=== PATIENT | male | born 1940 | race Caucasian/White ===

== ENCOUNTER → 2016-10-31 | Outpatient (CLI) | payer OTHER, BC ==
[~2016-10-31] VITALS: Ht 180.3 cm; Wt 97.5 kg
[~2016-10-31] MED LIST: ASPIR 8181 MG PO; CENTRUM SILVER1 EAC4 PO; CINNAMON500 MG PO; COQ-10100 MG PO; CRANBERRY PLUS1 EAC1 PO; FISH OIL 1,001000 M2 PO; FOLIC ACID1 MG PO; GINKGO BILOBA120 MG PO; GREEN TEA EXTR250 MG PO; HYTRIN 5 M5 MG/1 CAP PO; LISINOPRIL5 MG PO; PROSCAR 5MG TABL5 MG PO; SIMVASTATIN20 MG PO; TYLENOL325 MG PO; VITAMIN B-12500 MCG PO; VITAMIN C500 M1 PO; VITAMIN D2000 UNI1 PO; VITAMIN E400 UNIT PO; ZINC CHELATE50 MG PO
--- NOTE | ~2016-10-31 | CATHLAB ---
[facility] [employer] [place] [address] INVASIVE PROCEDURE REPORT Name: KIMMY BARON [id number] Admission: 10/31/16 Attend Phys: Benjamin Enamorado Discharge: Date of : 38 Date of Service: 10/31/162124 Report #: [id number] THIS REPORT FOR: //name// CC: Benjamin Grewal DATE OF SERVICE: 10/31/2016 CARDIAC CATHETERIZATION REPORT INDICATIONS: A 76-year-old male patient with exertional dyspnea and atypical chest pain with an abnormal noninvasive assessment consisting of reversible lateral wall defect on perfusion scanning. PROCEDURES: 1. Left heart catheterization. 2. Selective left and right coronary angiography. 3. Measurement of left ventricular end-diastolic pressures. 4. Supervision of conscious sedation. [employer]NA[employer]CE SUPERVISOR: Benjamin Arriola M.D. BRIEF DESCRIPTION OF PROCEDURE: After informed consent was obtained, the patient was brought to the cardiac catheterization laboratory in stable condition. The patient's right groin was prepped and draped in the usual sterile manner after which lidocaine was then instilled. Utilizing a modified Seldinger technique, the right femoral artery was then accessed. Under fluoroscopic visualization using selective coronary catheters, the right and left coronaries were opacified and visualized. The left ventriculogram was likewise imaged per standard protocol with EDP being measured. Subsequent to this, the sheath was removed, hemostasis achieved. The patient tolerated the procedure well. There were no complications. FINDINGS: 1. FLUOROSCOPY: There was mild calcific plaquing along the epicardial coronary arteries. No significant plaquing on the valvular intramyocardial structures of the heart. 2. HEMODYNAMICS: A. Pre-procedure aortic pressure 207/98. B. Left ventricular end-diastolic pressures: 25-30. C. Post-procedure aortic pressure 209/110 (after 2 sublingual nitroglycerins and 4 mg of Versed). 3. RHYTHM: The patient's rhythm was sinus throughout the entire procedure. [facility] [place] [address] INVASIVE PROCEDURE REPORT Name: KIMMY BARON Room #: REG [place]#: [id number] Admission: 10/31/16 Attend Phys: Benjamin Enamorado Discharge: Date of : 38 Date of Service: 10/31/162124 Report #: [id number] 4. ANGIOGRAPHY: This is a left coronary dominant system. A. Left main is of normal origin and caliber, bifurcates into left anterior descending and left circumflex and is free of high-grade disease. B. Left anterior descending is a moderate-caliber type 3 vessel which courses in the anterior interventricular sulcus, giving rise to first diagonal branches and is free of high-grade disease. The LAD gives rise to septal and diagonal branches as it courses towards the apex. It hooks the apex and terminates well above the apex in the posterior aspect of the heart. C. Left circumflex is a moderate-caliber vessel, gives rise to 2 early marginal branches, free of high-grade disease. It then continues posteriorly, giving rise to the posterior wall marginal branch, all of which are free of high-grade disease. D. Right coronary artery is a small nondominant vessel, which gives rise to an early RV marginal branch, free of significant stenosis. The RCA proper then terminates right past the acute margin of the heart and without any significant stenotic lesions. IMPRESSION: 1. Normal coronary arteries. 2. Abnormal hemodynamics with markedly elevated systolic hypertension. <ELECTRONICALLY SIGNED> By: Benjamin Arriola MD 11/01/16 1317 [id number] [id number] Benjamin Arriola MD /nt
[2016-10-31 11:13] VITALS: BP 160/90
[2016-10-31 11:18] LABS: HEMATOCRIT 41.1 % (42.0-52.0); HEMOGLOBIN 14.2 gm/dL (14.0-18.0); MCH 32.7 pg (26.0-34.0); MCHC 34.5 g/dL (28.0-37.0); MCV 94.8 fL (80.0-100.0); RBC 4.33 mil/uL (4.50-6.00); RDW 13.3 % (10.5-14.5); WBC 7.3 thou/uL (4.0-11.0)
[2016-10-31 11:26] LABS: CREATININE 1.2 mg/dL (0.7-1.3); POTASSIUM 4.4 mmol/L (3.5-5.1)
== END | disposition home or self-care (01) ==
LOC: CATH 07:06
PROVIDERS: Internal Medicine
DX: I25.10 Atherosclerotic heart disease of native coronary artery without angina pectoris (principal); I10 Essential (primary) hypertension

== ENCOUNTER 2016-12-06 05:27 | Inpatient (IN) | payer OTHER, BC ==
[2016-11-28 13:46] LABS: HEMATOCRIT 39.4 % (42.0-52.0); HEMOGLOBIN 13.2 gm/dL (14.0-18.0); MCH 31.8 pg (26.0-34.0); MCHC 33.5 g/dL (28.0-37.0); MCV 95.1 fL (80.0-100.0); RBC 4.14 mil/uL (4.50-6.00); RDW 12.3 % (10.5-14.5); WBC 7.8 thou/uL (4.0-11.0)
[2016-11-28 13:54] LABS: ALBUMIN 3.9 g/dL (3.4-5.0); CALCIUM 9.4 mg/dL (8.5-10.1); CREATININE 1.2 mg/dL (0.7-1.3); POTASSIUM 3.7 mmol/L (3.5-5.1)
[2016-11-28 13:57] LABS: PROTIME 10.5 Seconds (9.3-11.4)
[2016-11-28 14:37] LABS: URINE BILIRUBIN NEGATIVE (Negative); URINE BLOOD NEGATIVE (Negative); URINE COLOR YELLOW; URINE GLUCOSE-RANDOM* NEGATIVE (Negative); URINE KETONES NEGATIVE (Negative); URINE LEUKOCYTES-REFLEX TRACE (Negative); URINE PROTEIN (DIPSTICK) TRACE (Negative); URINE SPECIFIC GRAVITY 1.025 (1.003-1.035)
[2016-12-06] VITALS (8 sets, daily range): BP systolic 120–176; BP diastolic 77–98
[~2016-12-06] VITALS: Ht 180.3 cm; Wt 97.5 kg
--- NOTE | ~2016-12-06 | O ---
[facility] [address] [place] [address] OPERATIVE REPORT Name: BARONMARCOS Room #: 535-P [facility] IN M.R.#: [id number] Admission: 12/06/16 Attend Phys: Marcos Hunt MD Discharge: Date of : 38 Report #: [id number] THIS REPORT FOR: //name// CC: Marcos Grewal DATE OF SERVICE: 12/06/2016 DATE OF SERVICE: 12/06/2016. 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 PROCEDURE: Left total knee arthroplasty. SURGEON: Marcos Hunt MD INDICATIONS: This 76-year-old gentleman remains active and independent. 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 We discussed treatment options for some time and he feels conservative measures have been ineffective. He and his therefore have elected to go ahead with left total knee arthroplasty. We discussed potential risks and benefits at some length preoperatively, they understand and wish to proceed. DESCRIPTION OF PROCEDURE: The patient was taken to the operating room where he was placed under general anesthesia. The left knee and leg were meticulously prepped and draped. A thigh tourniquet was applied and inflated to 300 mmHg. An anterior longitudinal skin incision was made and carried through the medial retinaculum. The patella was reflected laterally where the marked degenerative change in all 3 compartments was noted. The GodTube knee system was utilized. Intramedullary guides were used on both the femur and the tibia. The femur was cut in 3 degrees of valgus. The tibia was cut perpendicular to the long axis of bone and with a 45-degree posterior slope, the femur seemed best suited for a size 4 femoral component. The tibia was also best suited for a size 4 tibial component. An 8 mm polyethylene insert resulted in satisfactory alignment, range of motion and stability. The moderate preoperative varus malalignment was corrected with these cuts and also with a limited release of the capsule and MCL along the medial border of the tibia. This resulted in satisfactory alignment, range of motion and stability. The patellar surface was resected with a patellar cutting guide and a 38 mm patellar button was applied using appropriate anchor holes. Once applied. The patella seemed to track nicely and appeared to be stable. [address] [address] OPERATIVE REPORT Name: MARCOS BARON Room #: 535-P [facility] IN M.R.#: [id number] Admission: 12/06/16 Attend Phys: Marcos Hunt MD Discharge: Date of : 38 Report #: [id number] These trial components were then removed. The surfaces were thoroughly irrigated and dried. The intramedullary canal was blocked with a bone block on both the femoral and tibial sides. Methyl methacrylate cement was mixed and injected into the porous surface of the tibia. The permanent DePuy PFC size 4 tibial component was then impacted into the tibia in appropriate position and excess cement was removed from around its margin. An 8 mm polyethylene insert was then snapped into position. It seated nicely and appeared to be secure. A size 4 press fit noncemented femoral component was then inserted, placing this in appropriate position with appropriate anchor holes. It was impacted on the distal femur. It seated nicely and appeared to be secure. The size 38 mm patellar button was cemented into place using appropriate anchor holes and methyl methacrylate cement. This was secured with a patellar clamp until the cement had hardened. All excess cement was removed from around its margin. Once the cement had fully hardened. Alignment, range of motion and stability were once again assessed and felt to be satisfactory. A single Hemovac drain was left in the wound exiting through a separate lateral stab incision. The tourniquet was deflated after a total tourniquet time of 52 minutes. The fascia was then closed with multiple #1 Vicryl sutures. The subcutaneous tissues were closed with 0 Monocryl. The skin was closed with skin edni. A sterile dressing was applied. The patient was awakened and returned to recovery room in good condition. <ELECTRONICALLY SIGNED> By: Marcos Hunt MD 12/07/16 0656 [id number] Marcos Hunt MD /nt
[~2016-12-06 05:27] MED LIST changes: +FOLIC ACID 40400 MCG PO; +TUMS PO
[2016-12-07] VITALS: BP 124/74
[2016-12-07 03:45] VITALS: BP 144/84
[2016-12-07 07:00] VITALS: BP 139/82
[2016-12-07 08:00] VITALS: BP 139/82
[2016-12-07 13:45] LABS: URINE BILIRUBIN NEGATIVE (Negative); URINE BLOOD NEGATIVE (Negative); URINE COLOR YELLOW; URINE GLUCOSE-RANDOM* NEGATIVE (Negative); URINE KETONES NEGATIVE (Negative); URINE NITRITE NEGATIVE (Negative); URINE PROTEIN (DIPSTICK) NEGATIVE (Negative); URINE SPECIFIC GRAVITY 1.025 (1.003-1.035); URINE UROBILINOGEN 0.2 E.U./dl (0.2-1.0)
[2016-12-07 15:18] LABS: HEMATOCRIT 35.1 % (42.0-52.0); HEMOGLOBIN 11.7 gm/dL (14.0-18.0); MCH 31.9 pg (26.0-34.0); MCHC 33.5 g/dL (28.0-37.0); MCV 95.1 fL (80.0-100.0); RBC 3.69 mil/uL (4.50-6.00); RDW 12.7 % (10.5-14.5); WBC 11.4 thou/uL (4.0-11.0)
[2016-12-07 15:25] LABS: CALCIUM 9.1 mg/dL (8.5-10.1); CREATININE 1.3 mg/dL (0.7-1.3); POTASSIUM 4.1 mmol/L (3.5-5.1)
[2016-12-07 15:44] VITALS: BP 162/78
[2016-12-07 19:30] VITALS: BP 159/77
[2016-12-08 03:00] VITALS: BP 114/73
[2016-12-08 05:27] LABS: HEMATOCRIT 35.5 % (42.0-52.0); HEMOGLOBIN 11.7 gm/dL (14.0-18.0)
[2016-12-08 08:30] VITALS: BP 142/80
[2016-12-08 16:19] VITALS: BP 144/82
[2016-12-08 23:20] VITALS: BP 184/102
[2016-12-09 07:15] VITALS: BP 180/92
[2016-12-09 15:05] VITALS: BP 160/89
[2016-12-09 19:17] VITALS: BP 174/96
[2016-12-10 03:00] VITALS: BP 173/99
[2016-12-10 04:10] VITALS: BP 163/88
[2016-12-10 08:05] VITALS: BP 172/96
[2016-12-10] MEDS ORDERED: XARELTO10 MG PO (08:50)
[2016-12-10] MEDS ORDERED: SENNA8.6 MG PO (09:55)
[2016-12-10] MEDS ORDERED: COLACE100 MG PO (09:55)
[2016-12-10] MEDS ORDERED: HYDRALAZINE 2525 MG PO (09:55)
== END 2016-12-10 14:57 | DRG 469 ==
LOC: TBA 05:27 → 5S 05:27 → PRE 05:43 → 4E 10:50 → PRE 12:32 → 5S 18:29
PROVIDERS: Internal Medicine; Orthopaedic Surgery
PROC: 0SRD0J9 Replacement of Left Knee Joint with Synthetic Substitute, Cemented, Open Approach (ICD-10-PCS; principal; 2016-12-06)
DX: M17.12 Unilateral primary osteoarthritis, left knee (principal); G93.40 Encephalopathy, unspecified; I10 Essential (primary) hypertension; E78.5 Hyperlipidemia, unspecified; N40.0 Benign prostatic hyperplasia without lower urinary tract symptoms; K59.00 Constipation, unspecified; G30.9 Alzheimer's disease, unspecified; M21.162 Varus deformity, not elsewhere classified, left knee; F02.80 Dementia in other diseases classified elsewhere, unspecified severity, without behavioral disturbance, psychotic disturbance, mood disturbance, and anxiety; M94.262 Chondromalacia, left knee; M24.562 Contracture, left knee; Z79.899 Other long term (current) drug therapy; Z85.828 Personal history of other malignant neoplasm of skin
CPT/HCPCS: 10785; 50010; 50101; 50415; 50954; 51130; 51225; 51412; 51771; 53000; 53364; 56525; 62110; 62900; 70005